=== PATIENT | male | born 1975 | race Caucasian/White ===

== ENCOUNTER 2018-10-26 20:49 | Emergency (ER) | payer MEDICARE, OTHER ==
[~2018-10-26 20:49] MED LIST: ZITHROMAX500 MG PO
--- OUTSIDE RECORDS SUMMARY | 2018-10-26 20:52 | XMS REPORT ---
Author Author [facility] Address Unknown Phone Unavailable Care Team Providers Care Home Economics Expert Name Role Phone Unavailable Unavailable Payers Payer Name Policy Type Policy Number Effective Date Expiration Date Problems This patient has no known problems. Allergies, Adverse Reactions, Alerts Allergy Name Allergy Type Status Severity Reaction(s) Onset Date Inactive Date Treating Clinician Comments No Known Allergies DA Active U 2016-05-05 00:00:00 Medications This patient has no known medications.
== END 2018-10-26 22:09 | disposition left against medical advice (07) ==
LOC: ER 20:49
DX: R19.7 Diarrhea, unspecified (principal)

== ENCOUNTER 2018-11-23 23:05 | Emergency (ER) | payer MEDICARE, OTHER ==
[~2018-11-23] VITALS: Ht 188 cm; Wt 107.5 kg
== END 2018-11-23 23:30 | disposition left against medical advice (07) ==
LOC: ER 23:05
DX: R09.81 Nasal congestion (principal)

== ENCOUNTER → 2019-01-12 | Outpatient (CLI) | payer MEDICARE ==
--- NOTE | 2019-01-12 16:37 | Diagnostic Imaging Report ---
Solid-phase gastric emptying study Reason for examination: Chronic nausea and vomiting The protocol used for this study is based on the Consensus Recommendations for Gastric Scintigraphy by the [employer] and the Society of Nuclear Medicine. Clinical information: The patient is not diabetic. The patient has not had previous gastrointestinal surgery. The patient is not on any medications expected to affect gastric motility. The patient has been fasting for at least 6 hours prior to this exam. Radiopharmaceutical: Tc-99m sulfur colloid 1 mCi Report: The radiopharmaceutical was added to 1/2 cup egg whites that were then prepared and served with 2 pieces of white bread toasted, 30 grams of jam and 4 ounces of water. The patient was able to consume more than 75% the meal. Images were obtained of the abdomen in the anterior and posterior projections at 10 minutes post the meal and at 1and 2 hours. Uptake was determined from the geometric mean of the anterior and posterior counts and the counts were corrected for decay of the radiolabel. The percent gastric retention of the labeled meal at: 1 hour was 59% (normal 30-90%) 2 hours was 25% (normal <60%; study is normal is gastric retention at 2 hours is less than 35%) Impression: The pattern of gastric emptying is normal. Scan findings do not support the clinical diagnosis of gastroparesis. Signed by: Dr. Kristine Cherry M.D. on 01/12/2019 4:34 PM
== END ==
LOC: NM 09:59
PROVIDERS: ATTEND Internal Medicine Gastroenterology
DX: R10.13 Epigastric pain (principal); K30 Functional dyspepsia; R11.0 Nausea; Z71.3 Dietary counseling and surveillance; E66.3 Overweight
CPT/HCPCS: 78264; A9541

== ENCOUNTER → 2019-08-18 | Outpatient (CLI) | payer MEDICARE ==
--- NOTE | 2019-08-18 13:00 | Diagnostic Imaging Report ---
Abdominal ultrasound. History: Upper abdominal pain. Comparison: None available. Discussion: Transverse and longitudinal images of the abdomen were obtained demonstrating a liver of normal size and echogenicity measuring 14.7 cm in length. The portal vein is patent with hepatopetal flow and is within normal limits measuring 11 mm in diameter. The biliary tree is within normal limits with the common bile duct measuring 3 mm in diameter. The gallbladder is normal without evidence of stones, wall thickening, or pericholecystic fluid. The sonographic Simms's sign was negative. The kidneys are normal in size and echogenicity bilaterally without evidence of hydronephrosis, stones, or mass. The right kidney measures 10.9 cm and the left kidney measures 10.3 cm in length. The spleen is normal in size and appearance measuring 11.8 cm in length. The pancreatic head and body are visualized and are normal in appearance. The abdominal aorta and IVC are within normal limits. There is no evidence of free fluid. IMPRESSION: Normal abdominal ultrasound. No evidence of cholelithiasis. Signed by: Mckinley Moncada on 08/18/2019 12:57 PM
== END ==
LOC: US 11:39
PROVIDERS: ATTEND Internal Medicine Gastroenterology
DX: R10.10 Upper abdominal pain, unspecified (principal)
CPT/HCPCS: 76700

== ENCOUNTER → 2019-08-26 | Day surgery (SDC) | payer MEDICARE ==
[~2019-08-26] MED LIST changes: +FENTANYL CITRATE/PF 100MCG/2 ML INJ ONE; +MIDAZOLAM HCL 2 MG/2 ML VIAL ONE; +PROPOFOL IV EMULSION 10 MG/ML 50 ML VIAL ONE
[2019-08-26 12:25] VITALS: BP 107/67
--- NOTE | 2019-08-26 13:05 | Operative Report ---
DATE OF PROCEDURE: 08/26/2019 SURGEON: Perry Rangel MD PROCEDURE: EGD with biopsies. INDICATIONS FOR EGD: Upper abdominal pain, nausea. MEDICATIONS: The patient was done under MAC, please see anesthesiologist's note. PROCEDURE IN DETAIL: With the patient in left lateral decubitus position, a flexible fiberoptic Olympus gastroscope was introduced into the esophagus under direct visualization without any difficulty. There was some patchy erythema noted in distal esophagus. The scope was then advanced with ease into the stomach. Mucosa overlying the antrum and the body revealed some patchy erythema and [id number] edema, and biopsies were obtained and sent to stain for H. pylori. Minute hyperplastic-appearing polyps were noted in the body of the stomach and somewhat partially excised with the cold biopsy forceps. The pylorus was intubated with ease and the scope was advanced all the way to the second portion of the duodenum. Biopsies were obtained from the proximal second portion and duodenal bulb to rule out sprue. The scope was then withdrawn back into the stomach and retroflexed, and mucosa overlying the fundus and the cardia appeared to be within normal limits. The scope was then straightened out, it was subsequently withdrawn, and the patient tolerated the procedure well. IMPRESSION: 1. Distal esophagitis. 2. Gastritis, biopsied, biopsies sent to stain for Helicobacter pylori. 3. Gastric polyps, body, minute, hyperplastic-appearing, some partially excised with the cold biopsy forceps. 4. Rule out sprue. PLAN: Follow up histology. Initiate Protonix 40 mg 1 p.o. q.a.m. before meals. Perry Rangel MD [facility] [place] /[id number] cc: Lucero Hayes MD
== END | disposition home or self-care (01) ==
LOC: OR 09:00
PROVIDERS: ATTEND Internal Medicine Gastroenterology
DX: R10.10 Upper abdominal pain, unspecified (principal); K29.80 Duodenitis without bleeding; K31.9 Disease of stomach and duodenum, unspecified; K31.7 Polyp of stomach and duodenum; K21.0 Gastro-esophageal reflux disease with esophagitis; Z01.810 Encounter for preprocedural cardiovascular examination
CPT/HCPCS: 43239; 88305; 88312; 93005; J2250; J2704; J3010

== ENCOUNTER 2022-02-21 16:22 | Emergency (ER) | payer MEDICARE ==
[~2022-02-21] VITALS: Ht 188 cm; Wt 107.5 kg
[~2022-02-21 16:22] MED LIST changes: -FENTANYL CITRATE/PF 100MCG/2 ML INJ ONE; -MIDAZOLAM HCL 2 MG/2 ML VIAL ONE; -PROPOFOL IV EMULSION 10 MG/ML 50 ML VIAL ONE
[2022-02-21 16:45] LABS: BASOPHILS % 0.6 % (0.0-1.0); EOSINOPHILS # (AUTO) 0.2 (0.0-0.4); EOSINOPHILS % 2.3 % (0.0-6.0); HEMATOCRIT 42.8 % (38.2-49.6); HEMOGLOBIN 14.8 g/dL (14.0-18.0); LYMPHOCYTES # (AUTO) 1.4 (1.0-3.2); LYMPHOCYTES % 19.5 % (18.0-39.1); MEAN CORPUSCULAR HEMOGLOBIN 31.4 pg (28-32); MEAN CORPUSCULAR HGB CONC 34.6 g/dL (31-35); MEAN CORPUSCULAR VOLUME 90.9 fL (81-99); MONOCYTES # (AUTO) 0.4 (0.2-0.8); MONOCYTES % 5.9 % (4.4-11.3); NEUTROPHILS % 71.6 % (38.7-80.0); PLATELET COUNT 210 x10e3/uL (140-360); RED BLOOD COUNT 4.71 x10e6/uL (4.3-5.7); RED CELL DISTRIBUTION WIDTH 12.4 % (11.7-14.4)
[2022-02-21] MEDS ORDERED: IOPAMIDOL 370 MG/ML 200 ML INFUS..BTL INJ ONE (16:55)
[2022-02-21 17:25] LABS: ALBUMIN 3.8 g/dL (3.5-5.0); ALBUMIN/GLOBULIN RATIO 1.3 (0.8-2.0); ANION GAP 11.8 mmol/L (8-16); CALCIUM 8.7 mg/dL (8.4-10.2); CREATININE, SERUM 0.87 mg/dL (0.72-1.25); POTASSIUM 3.8 mmol/L (3.5-5.1)
[2022-02-21 17:28] LABS: CLARITY,URINE CLEAR (CLEAR); COLOR,URINE YELLOW (YELLOW); KETONES,URINE NEGATIVE (NEGATIVE); LEUKOCYTE ESTERASE ,URINE NEGATIVE (NEGATIVE); NITRITE,URINE NEGATIVE (NEGATIVE); PROTEIN,URINE DIPSTICK NEGATIVE (NEGATIVE); URINE UROBILINOGEN 0.2 mg/dL (0.2 - 1)
[2022-02-21 17:38] LABS: BACTERIA,URINE RARE /HPF; EPITHELIAL CELLS,URINE RARE /LPF; MUCUS,URINE MANY (RARE)
[2022-02-21] MEDS ORDERED: CEPHALEXIN500 MG PO (18:15)
== END 2022-02-21 18:30 | disposition home or self-care (01) ==
LOC: ER 17:36
DX: R10.33 Periumbilical pain (principal); N39.0 Urinary tract infection, site not specified; R11.0 Nausea
CPT/HCPCS: 36415; 74177; 80053; 81001; 84484; 85025; 93005; 99284; Q9967

== ENCOUNTER 2022-04-04 14:27 | Emergency (ER) | payer MEDICARE ==
[~2022-04-04] VITALS: Ht 188 cm; Wt 120.2 kg
[~2022-04-04 14:27] MED LIST changes: +CEPHALEXIN500 MG PO
[2022-04-04] MEDS ORDERED: METHOCARBAMOL750 MG PO (16:08)
[2022-04-04] MEDS ORDERED: NAPROSYN500 MG PO (16:08)
== END 2022-04-04 16:17 | disposition home or self-care (01) ==
LOC: ER 16:00
DX: M54.32 Sciatica, left side (principal); M79.18 Myalgia, other site; F81.9 Developmental disorder of scholastic skills, unspecified
CPT/HCPCS: 99283

== ENCOUNTER 2022-05-23 16:09 | Emergency (ER) | payer MEDICARE ==
[~2022-05-23] VITALS: Ht 188 cm; Wt 110.2 kg
[~2022-05-23 16:09] MED LIST changes: +METHOCARBAMOL750 MG PO; +NAPROSYN500 MG PO
== END 2022-05-23 17:33 | disposition home or self-care (01) ==
LOC: ER 17:07
DX: M54.30 Sciatica, unspecified side (principal); F81.9 Developmental disorder of scholastic skills, unspecified
CPT/HCPCS: 99282

== ENCOUNTER 2025-08-28 14:10 | Emergency (ER) | payer MEDICARE ==
[~2025-08-28] VITALS: Ht 188 cm; Wt 110.2 kg
[2025-08-28 14:45] VITALS: PULSE 71; RESP 15; TEMP 97.9; O2SAT 100
== END 2025-08-28 15:00 | disposition home or self-care (01) ==
LOC: ER 14:53
DX: H61.23 Impacted cerumen, bilateral (principal); F81.9 Developmental disorder of scholastic skills, unspecified
CPT/HCPCS: 99282